=== PATIENT | male | born 1990 | race African-American/Black ===

== ENCOUNTER 2019-12-11 18:47 | Inpatient (IN) | payer MEDICAID ==
[~2019-12-11] VITALS: Ht 177.8 cm; Wt 61.0 kg
[2019-12-11] MEDS ORDERED: SODIUM CHLORIDE 0.9% 1,000 ML IV ONE (19:00)
[2019-12-11 19:26] LABS: BASOPHILS % (AUTO) 0.8 % (0.0-2.0); HEMATOCRIT 46.8 % (41-53); HEMOGLOBIN 15.4 g/dL (13.5-17.5); LYMPHOCYTES # (AUTO) 3.6 K/uL (1.0-4.8); LYMPHOCYTES % (AUTO) 46.6 % (22.0-44.0); MEAN CORPUSCULAR HEMOGLOBIN 30.5 pg (26.0-34.0); MEAN CORPUSCULAR HGB CONC 32.8 G/dL (31.0-37.0); MEAN CORPUSCULAR VOLUME 93 fL (80-100); MONOCYTES # (AUTO) 0.4 K/uL (0.1-1.0); MONOCYTES % (AUTO) 4.8 % (2.0-9.0); NEUTROPHILS # (AUTO) 2.9 K/uL (1.8-7.7); NEUTROPHILS % (AUTO) 37.8 % (40.0-70.0); PLATELET COUNT (AUTO) 255 K/uL (150-450); RED BLOOD CELL COUNT(AUTO) 5.04 MIL/uL (4.50-5.90); RED CELL DISTRIBUTION WIDTH 15.1 % (11.5-14.5)
[2019-12-11] MEDS ORDERED: OLAN10TA3 PO (19:28)
[2019-12-11] MEDS ORDERED: BUPR75 PO (19:28)
[2019-12-11] MEDS ORDERED: BUSP15 PO (19:28)
[2019-12-11 19:32] LABS: ANION GAP 6 mmol/L (8-16); CALCIUM, TOTAL 9.2 mg/dL (8.8-10.5); CARBON DIOXIDE 33 mmol/L (22-29); CHLORIDE 106 mmol/L (98-107); CREATININE 1.16 mg/dL (0.60-1.30); GLOMERULAR FILTR. RATE CALC > 60 mL/min (>60); GLUCOSE,RANDOM 98 mg/dL (70-110); SODIUM SERUM 145 mmol/L (136-145); UREA NITROGEN, BLOOD 9 mg/dL (7-18)
[2019-12-11 19:37] LABS: ALANINE AMINOTRANSFERASE 27 U/L (12-78); ALBUMIN 3.9 g/dL (3.4-5.0); ALKALINE PHOSPHATASE 92 U/L (46-116); ASPARTATE AMINOTRANSFERASE 16 U/L (15-37); BILIRUBIN,TOTAL 0.1 mg/dL (0.1-1.0); TOTAL PROTEIN, SERUM 7.4 g/dL (6.4-8.2)
[2019-12-11 19:39] LABS: ACETAMINOPHEN < 2 mcg/mL (10-30)
[2019-12-11 19:47] LABS: SALICYLATE 5.6 mg/dL (2.8-20.0)
[2019-12-11 20:13] LABS: AMPHET/METH SCREEN,URINE POSITIVE (NEGATIVE); BARBITURATE SCREEN, URINE NEGATIVE (NEGATIVE); BENZODIAZEPINES SCREEN,URINE NEGATIVE (NEGATIVE); CANNABINOID SCREEN,URINE NEGATIVE (NEGATIVE); COCAINE SCREEN,URINE NEGATIVE (NEGATIVE); METHADONE SCREEN, URINE NEGATIVE (NEGATIVE); OPIATE SCREEN,URINE NEGATIVE (NEGATIVE)
[2019-12-11 20:16] LABS: PHENCYCLIDINE SCREEN,URINE NEGATIVE (NEGATIVE)
[2019-12-11 23:34] LABS: ANION GAP 5 mmol/L (8-16); CALCIUM, TOTAL 7.7 mg/dL (8.8-10.5); CARBON DIOXIDE 31 mmol/L (22-29); CHLORIDE 113 mmol/L (98-107); CREATININE 1.15 mg/dL (0.60-1.30); GLOMERULAR FILTR. RATE CALC > 60 mL/min (>60); GLUCOSE,RANDOM 110 mg/dL (70-110); POTASSIUM 3.6 mmol/L (3.5-5.1); SODIUM SERUM 149 mmol/L (136-145); UREA NITROGEN, BLOOD 8 mg/dL (7-18)
[2019-12-12] MEDS ORDERED: QUEtiapine FUMARATE 100 MG TABLET PO PRN (00:30)
[2019-12-12 01:52] VITALS: BP 119/72
[2019-12-12 03:34] VITALS: BP 119/72
[2019-12-12] MEDS ORDERED: BUPR-93 PO (13:08)
[2019-12-12] MEDS ORDERED: DOCUSATE SODIUM 100 MG CAPSULE PO PRN (13:15)
[2019-12-12] MEDS ORDERED: ONDANSETRON HCL 4 MG TABLET PO PRN (13:15)
[2019-12-12] MEDS ORDERED: NICOTINE 14 MG/24 HOUR PATCH TD PRN (13:15)
[2019-12-12] MEDS ORDERED: ALBUTEROL SULFATE HFA 90 MCG/PUFF 8 GM INHALER IH PRN (13:15)
[2019-12-12] MEDS ORDERED: PETROLATUM,WHITE 28 GM JELLY TP PRN (13:15)
[2019-12-12] MEDS ORDERED: ACETAMINOPHEN 325 MG TABLET PO PRN (13:15)
[2019-12-12] MEDS ORDERED: CloNIDine HCL 0.1 MG TABLET PO PRN (13:15)
[2019-12-12] MEDS ORDERED: GuaiFENesin/D-METHORPHAN [SUGAR-FREE] 200-20MG/10 ML SYRUP UDCUP PO PRN (13:15)
[2019-12-12] MEDS ORDERED: LOPERAMIDE HCL 2 MG CAPSULE PO PRN (13:15)
[2019-12-12] MEDS ORDERED: MAG HYDROX/AL HYDROX/SIMETH ES 30 ML SUSPENSION UDCUP PO PRN (13:15)
[2019-12-12] MEDS ORDERED: IBUPROFEN 400 MG TABLET PO PRN (13:15)
[2019-12-12] MEDS ORDERED: MAGNESIUM HYDROXIDE SUSPENSION 30 ML UDCUP PO PRN (13:15)
[2019-12-12] MEDS: BuPROPion HCL XL 150 MG ER TABLET PO SCH (15:46)
[2019-12-12] MEDS: BusPIRone HCL 15 MG TABLET PO SCH (15:46)
[2019-12-12] MEDS: OLANZapine 10 MG TABLET PO SCH (20:12)
[2019-12-12] MEDS: ZOLPIDEM TARTRATE 10 MG TABLET PO PRN (21:08)
[2019-12-12 22:17] VITALS: BP 127/77
[2019-12-12] MEDS: LORazepam 2 MG TABLET PO PRN (22:37)
[2019-12-13] MEDS: BuPROPion HCL XL 150 MG ER TABLET PO SCH (08:39)
[2019-12-13] MEDS: BusPIRone HCL 15 MG TABLET PO SCH (08:40)
[2019-12-13 08:55] VITALS: BP 116/74
[2019-12-13] MEDS: LORazepam 2 MG TABLET PO PRN ×3 (12:03→21:09)
[2019-12-13] MEDS: ZOLPIDEM TARTRATE 10 MG TABLET PO PRN (20:11)
[2019-12-13] MEDS: OLANZapine 10 MG TABLET PO SCH (20:11)
[2019-12-14] MEDS: BuPROPion HCL XL 150 MG ER TABLET PO SCH (10:19)
[2019-12-14] MEDS: BusPIRone HCL 15 MG TABLET PO SCH (10:19)
[2019-12-14] MEDS: LORazepam 2 MG TABLET PO PRN (11:15)
== END 2019-12-14 16:30 | disposition home or self-care (01) | DRG 885 ==
LOC: EMS 18:47 → 3EI 12-12 01:00
DX: F25.1 Schizoaffective disorder, depressive type (principal); R45.851 Suicidal ideations; E87.1 Hypo-osmolality and hyponatremia; E87.0 Hyperosmolality and hypernatremia; F15.10 Other stimulant abuse, uncomplicated; F19.10 Other psychoactive substance abuse, uncomplicated; T50.901A Poisoning by unspecified drugs, medicaments and biological substances, accidental (unintentional), initial encounter; Y92.89 Other specified places as the place of occurrence of the external cause; F10.129 Alcohol abuse with intoxication, unspecified; Y90.8 Blood alcohol level of 240 mg/100 ml or more; Z78.1 Physical restraint status; Z79.899 Other long term (current) drug therapy
CPT/HCPCS: 93005; G0480; G0481; J7030

== ENCOUNTER 2023-08-23 13:41 | Inpatient (IN) | payer MEDICAID, OTHER ==
[~2023-08-23] VITALS: Ht 175.3 cm; Wt 55.4 kg
[~2023-08-23 13:41] MED LIST: BUPR-50 PO; BUSP15 PO; OLAN10TA74 PO
[2023-08-23 14:14] LABS: BASOPHILS % (AUTO) 0.7 % (0.0-2.0); EOSINOPHILS % (AUTO) 3.5 % (1.0-6.0); HEMOGLOBIN 15.2 g/dL (13.5-17.5); LYMPHOCYTES # (AUTO) 2.4 K/uL (1.0-4.8); LYMPHOCYTES % (AUTO) 44.9 % (22.0-44.0); MEAN CORPUSCULAR HEMOGLOBIN 31.2 pg (26.0-34.0); MEAN CORPUSCULAR HGB CONC 34.5 G/dL (31.0-37.0); MEAN CORPUSCULAR VOLUME 91 fL (80-100); MONOCYTES # (AUTO) 0.4 K/uL (0.1-1.0); MONOCYTES % (AUTO) 7.3 % (2.0-9.0); NEUTROPHILS # (AUTO) 2.3 K/uL (1.8-7.7); NEUTROPHILS % (AUTO) 43.6 % (40.0-70.0); PLATELET COUNT (AUTO) 266 K/uL (150-450); RED BLOOD CELL COUNT(AUTO) 4.86 MIL/uL (4.50-5.90); RED CELL DISTRIBUTION WIDTH 13.6 % (11.5-14.5); WHITE BLOOD COUNT (AUTO) 5.3 K/uL (4.5-11.0)
[2023-08-23] MEDS ORDERED: LORazepam 1 MG TABLET PO ONE (14:15)
[2023-08-23] MEDS ORDERED: OLANZapine 5 MG TABLET PO ONE (14:15)
[2023-08-23 14:21] LABS: ANION GAP 8 mmol/L (8-16); CALCIUM, TOTAL 8.9 mg/dL (8.8-10.5); CARBON DIOXIDE 31 mmol/L (22-29); CHLORIDE 101 mmol/L (98-107); CREATININE 1.11 mg/dL (0.60-1.30); GLOMERULAR FILTR. RATE CALC > 60 mL/min (>60); GLUCOSE,RANDOM 117 mg/dL (70-110); POTASSIUM 3.7 mmol/L (3.5-5.1); SODIUM SERUM 139 mmol/L (136-145); UREA NITROGEN, BLOOD 10 mg/dL (7-18)
[2023-08-23 14:23] LABS: ALCOHOL, BLOOD (SERUM) < 3 mg/dL (0-10)
[2023-08-23 14:27] LABS: ALANINE AMINOTRANSFERASE 20 U/L (12-78); ALBUMIN 4.1 g/dL (3.4-5.0); ALKALINE PHOSPHATASE 78 U/L (46-116); ASPARTATE AMINOTRANSFERASE 10 U/L (15-37); BILIRUBIN,TOTAL 0.6 mg/dL (0.1-1.0); TOTAL PROTEIN, SERUM 7.8 g/dL (6.4-8.2)
[2023-08-23] MEDS ORDERED: LORazepam 2 MG TABLET PO PRN (14:45)
[2023-08-23] MEDS ORDERED: ZOLPIDEM TARTRATE 10 MG TABLET PO PRN (14:45)
[2023-08-23] MEDS ORDERED: OLANZapine 5 MG RAPDIS TABLET PO PRN (14:45)
[2023-08-23 15:57] LABS: COVID AG,FIA SOURCE NASAL SWAB
[2023-08-23 16:39] LABS: SARS-COV2 (COVID) ANTIGEN,FIA Negative (Negative)
[2023-08-23 20:03] VITALS: BP 105/73; PULSE 112; RESP 20; TEMP 97.4
[2023-08-23 21:13] VITALS: BP 105/92; PULSE 124; RESP 18; TEMP 97.4; O2SAT 99
[2023-08-24 08:44] VITALS: BP 114/52; PULSE 102; RESP 16; TEMP 97.4; O2SAT 100
[2023-08-24] MEDS: BuPROPion HCL XL 150 MG ER TABLET PO SCH (11:11)
[2023-08-24] MEDS ORDERED: GABA-1181 PO (11:12)
[2023-08-24] MEDS ORDERED: BUSP10TA23 PO (11:12)
[2023-08-24] MEDS ORDERED: BUPR-317 PO (11:12)
[2023-08-24] MEDS ORDERED: OLAN20TA35 PO (11:12)
[2023-08-24] MEDS ORDERED: RISP2TAB45 PO (11:12)
[2023-08-24] MEDS ORDERED: OLANZapine 10 MG TABLET PO ONE (11:15)
[2023-08-24] MEDS: NICOTINE POLACRILEX 2 MG LOZENGE PO PRN ×3 (12:10→20:43)
[2023-08-24] MEDS: BusPIRone HCL 10 MG TABLET PO SCH ×2 (12:10→16:29)
[2023-08-24] MEDS ORDERED: GABAPENTIN 300 MG CAPSULE PO PRN (14:45)
[2023-08-24] MEDS ORDERED: LOPERAMIDE HCL 2 MG CAPSULE PO PRN (15:45)
[2023-08-24] MEDS ORDERED: CloNIDine HCL 0.1 MG TABLET PO PRN (15:45)
[2023-08-24] MEDS ORDERED: ALBUTEROL SULFATE HFA 90 MCG/PUFF 8 GM INHALER IH PRN (15:45)
[2023-08-24] MEDS ORDERED: GuaiFENesin/D-METHORPHAN [SUGAR-FREE] 200-20MG/10 ML SYRUP UDCUP PO PRN (15:45)
[2023-08-24] MEDS ORDERED: PETROLATUM,WHITE 28 GM JELLY TP PRN (15:45)
[2023-08-24] MEDS ORDERED: ACETAMINOPHEN 325 MG TABLET PO PRN (15:45)
[2023-08-24] MEDS ORDERED: MAGNESIUM HYDROXIDE SUSPENSION 30 ML UDCUP PO PRN (15:45)
[2023-08-24] MEDS ORDERED: DOCUSATE SODIUM 100 MG CAPSULE PO PRN (15:45)
[2023-08-24] MEDS ORDERED: MAG HYDROX/ALUMINUM HYD/SIMETH ES 30 ML SUSPENSION UDCUP PO PRN (15:45)
[2023-08-24] MEDS ORDERED: ONDANSETRON HCL 4 MG TABLET PO PRN (15:45)
[2023-08-24] MEDS ORDERED: IBUPROFEN 400 MG TABLET PO PRN (15:45)
[2023-08-24] MEDS ORDERED: NICOTINE 14 MG/24 HOUR PATCH TD PRN (15:45)
[2023-08-24 20:03] VITALS: BP 100/64; PULSE 76; RESP 17; TEMP 97.5; O2SAT 96
[2023-08-24] MEDS ORDERED: OLANZapine 10 MG TABLET PO SCH (21:00)
[2023-08-25] MEDS: BusPIRone HCL 10 MG TABLET PO SCH (08:28)
[2023-08-25] MEDS: BuPROPion HCL XL 150 MG ER TABLET PO SCH (08:28)
[2023-08-25] MEDS: NICOTINE POLACRILEX 2 MG LOZENGE PO PRN (09:47)
[2023-08-25 09:56] VITALS: BP 99/68; PULSE 87; RESP 17; TEMP 97.6; O2SAT 99
[2023-08-25] MEDS ORDERED: OLAN10TA74 PO ×2 (10:43→14:54)
[2023-08-25] MEDS ORDERED: BUSP10TA23 PO ×2 (10:45→14:54)
[2023-08-25] MEDS ORDERED: BUPR-49 PO (14:54)
== END 2023-08-25 12:00 | disposition home or self-care (01) | DRG 750 ==
LOC: EMS 13:47 → B2S 16:54
PROVIDERS: ADMIT Psychiatry & Neurology Child & Adolescent Psychiatry; ATTEND Psychiatry & Neurology Child & Adolescent Psychiatry
DX: F25.1 Schizoaffective disorder, depressive type (principal); F17.210 Nicotine dependence, cigarettes, uncomplicated; F41.9 Anxiety disorder, unspecified; G47.00 Insomnia, unspecified; R00.0 Tachycardia, unspecified; Z79.899 Other long term (current) drug therapy; Z59.00 Homelessness unspecified; Z20.822 Contact with and (suspected) exposure to COVID-19
CPT/HCPCS: 80053; 85025; 99285; G0480; Q9967